=== PATIENT | male | born 1995 | race Two or more races ===

== ENCOUNTER 2020-10-10 08:53 | Emergency (ER) | payer OTHER ==
[~2020-10-10] VITALS: Ht 152.4 cm; Wt 49.0 kg
[2020-10-10] MEDS ORDERED: TOPAMAX25 M1 PO (09:11)
[2020-10-10] MEDS ORDERED: MAXALT10 MG PO (09:12)
[2020-10-10] MEDS ORDERED: ZITHROMAX500 MG PO (12:48)
== END 2020-10-10 13:20 | disposition home or self-care (01) ==
LOC: ER 08:53
DX: G44.009 Cluster headache syndrome, unspecified, not intractable (principal)

== ENCOUNTER 2022-08-03 00:25 | Emergency (ER) | payer OTHER ==
[~2022-08-03] VITALS: Ht 167.6 cm; Wt 54.4 kg
[~2022-08-03 00:25] MED LIST: MAXALT10 MG PO; TOPAMAX25 M1 PO; ZITHROMAX500 MG PO
[2022-08-03] MEDS ORDERED: ULTRACET PO (02:49)
== END 2022-08-03 02:54 | disposition home or self-care (01) ==
LOC: ER 00:25
DX: G44.009 Cluster headache syndrome, unspecified, not intractable (principal); Z88.8 Allergy status to other drugs, medicaments and biological substances

== ENCOUNTER 2024-06-15 10:39 | Emergency (ER) | payer OTHER ==
[~2024-06-15] VITALS: Ht 170.2 cm; Wt 56.7 kg
[~2024-06-15 10:39] MED LIST changes: +ULTRACET PO
[2024-06-15] MEDS ORDERED: CLINDAMYCIN PHOSPHATE 150 MG/ML (900mg) IV STA (12:14)
[2024-06-15] MEDS ORDERED: KETOROLAC TROMETHAMINE 60 MG VIAL IM STA (12:15)
[2024-06-15] MEDS ORDERED: CEFTRIAXONE SODIUM 1,000 MG VIAL IV STA (12:15)
== END 2024-06-15 15:42 | disposition home or self-care (01) ==
LOC: ER 10:41
DX: L03.115 Cellulitis of right lower limb (principal)